=== PATIENT | male | born 1975 | race Caucasian/White ===

== ENCOUNTER 2018-01-25 12:52 | Emergency (ER) | payer OTHER ==
[~2018-01-25] VITALS: Ht 205.7 cm; Wt 86.6 kg
[2018-01-25] MEDS ORDERED: SODIUM CHLORIDE FLUSH 10ML SYR IVF ONE (14:30)
[2018-01-25] MEDS ORDERED: KETOROLAC 30 MG/1 ML IVPush ONE (14:30)
[2018-01-25] MEDS ORDERED: ONDANSETRON 2MG/ML, 2ML IVPush ONE (14:30)
[2018-01-25] MEDS ORDERED: ONDANSETRON 2MG/ML, 2ML ONE (14:33)
[2018-01-25] MEDS ORDERED: KETOROLAC 30 MG/1 ML ONE (14:34)
[2018-01-25] MEDS ORDERED: MORPHINE SULFATE 4 MG/ML, 1ML ONE (14:34)
[2018-01-25] MEDS: MORPHINE SULFATE 4 MG/ML, 1ML IVPush PRN ×2 (14:40→15:00)
[2018-01-25 14:59] LABS: BASOPHILS # (AUTO) 0.07 x10^3/uL (0-0.1); BASOPHILS % (AUTO) 1 % (0-1); EOSINOPHILS # (AUTO) 0.35 x10^3/uL (0-0.4); EOSINOPHILS % (AUTO) 4 % (1-7); LYMPHOCYTES % (AUTO) 33 % (22-44); MD NO; MEAN CORPUSCULAR HEMOGLOBIN 32.7 pg (27.5-34.5); MEAN CORPUSCULAR HGB CONC 34.1 g/dL (33.2-36.2); MEAN CORPUSCULAR VOLUME 95.7 fL (81-97); MEAN PLATELET VOLUME 8.5 fL (7.4-10.4); MONOCYTES # (AUTO) 1.03 x10^3/uL (0.2-0.8); MONOCYTES % (AUTO) 12 % (2-9); NEUTROPHILS # (AUTO) 4.34 x10^3/uL (1.8-6.8); NEUTROPHILS % (AUTO) 50 % (42-75); PLATELET COUNT 329 x10^3/uL (130-400); RED BLOOD COUNT 4.34 x10^6/uL (4.38-5.82); RED CELL DISTRIBUTION WIDTH 13.7 % (9.4-14.8)
[2018-01-25 15:50] VITALS: BP 124/87
== END 2018-01-25 15:50 | disposition home or self-care (01) ==
LOC: ED 15:40
DX: G56.03 Carpal tunnel syndrome, bilateral upper limbs (principal)
CPT/HCPCS: 36415; 85025; 96374; 96375; 99284; J1885; J2405

== ENCOUNTER 2018-07-13 20:58 | Emergency (ER) | payer OTHER ==
[~2018-07-13] VITALS: Ht 205.7 cm; Wt 75.0 kg
[2018-07-13] MEDS ORDERED: PHEN100C PO (21:17)
[2018-07-13] MEDS ORDERED: DIPHENHYDRAMINE 50 MG/ML, 1ML IVPush ONE (21:30)
[2018-07-13] MEDS ORDERED: SODIUM CHLORIDE 0.9% 1,000ML IVBOLUS ONE (21:30)
[2018-07-13] MEDS ORDERED: METOCLOPRAMIDE 5 MG/ML, 2ML IVPush ONE (21:30)
[2018-07-13] MEDS ORDERED: METOCLOPRAMIDE 5 MG/ML, 2ML ONE (21:32)
[2018-07-13] MEDS ORDERED: DIPHENHYDRAMINE 50 MG/ML, 1ML ONE (21:32)
[2018-07-13] MEDS ORDERED: KETOROLAC 30 MG/1 ML ONE (21:34)
[2018-07-13] MEDS ORDERED: KETOROLAC 60 MG/2 ML IVPush ONE (22:00)
[2018-07-13 22:50] VITALS: BP 113/77
== END 2018-07-13 23:18 | disposition home or self-care (01) ==
LOC: ED 21:42
DX: G43.019 Migraine without aura, intractable, without status migrainosus (principal); J01.00 Acute maxillary sinusitis, unspecified; Z90.81 Acquired absence of spleen
CPT/HCPCS: 96374; 96375; 99284; J1200; J1885; J2765; J7030